=== PATIENT | male | born 1960 | race Caucasian/White ===

== ENCOUNTER 2016-09-30 12:42 | Day surgery (SDC) | payer BC ==
[~2016-09-30 12:42] MED LIST: ACETAMINOPHEN 1000MG/100 ML PREMIX IV ONE
[2016-09-30] MEDS ORDERED: LIDOCAINE 2% MDV (20MG/ML) 20ML VIAL IV ONE (14:00)
[2016-09-30] MEDS ORDERED: SEVOFLURANE 250 ML INH ONE (14:00)
[2016-09-30] MEDS ORDERED: HYDROCODONE/APAP 7.5/325MG TABLET PO ONE (14:00)
[2016-09-30] MEDS ORDERED: BUPIVACAINE 0.25% W/EPI MPF 30ML VIAL IVP ONE (14:00)
[2016-09-30] MEDS ORDERED: FENTANYL PF 100MCG/2ML VIAL IV ONE (14:00)
[2016-09-30] MEDS ORDERED: PROPOFOL 10 MG/ML VIAL IV ONE (14:00)
[2016-09-30] MEDS ORDERED: KETOROLAC 30 MG/ML VIAL IVP ONE (14:00)
--- NOTE | 2016-10-07 11:11 | Operative Note ---
DATE OF SURGERY: 09/30/2016 Surgeon: Rodrick Carlson DO PREOPERATIVE DIAGNOSES: 1. Torn medial meniscus of the left knee. 2. Synovitis of the left knee. 3. Chondromalacia of left knee. POSTOPERATIVE DIAGNOSES: 1. Torn medial meniscus of the left knee. 2. Synovitis of the left knee (2 compartments). 3. 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 OPERATION: 1. Arthroscopic partial medial meniscectomy left knee. 2. Arthroscopic partial synovectomy left knee (2 compartments). 3. Arthroscopic chondroplasty of medial femoral condyle and trochlea left knee. DESCRIPTION OF PROCEDURE: This 56-year-old male was taken to the operating room, placed in the supine position on the operating room table. A general anesthetic was administered and the left lower extremity was elevated. It was exsanguinated and the tourniquet inflated to 300 mmHg. Arthroscopic knee burgess applied. Left knee prepped with Hibiclens and draped in the usual sterile fashion. An inferolateral portal was established for the 4 mm arthroscope. Initial evaluation of the joint demonstrated normal appearance of the suprapatellar pouch. The articular cartilage of the patella appeared normal. An inferomedial portal was established, and probing did not reveal any gross pathology there. However, the trochlea demonstrated grade 2 change in the center of the trochlea. A linear area in the deepest part of the trochlea which was approximately 1.5 cm in length demonstrated gross instability of the articular cartilage with flaps of articular cartilage being loose. Utilizing the rotating shaver, we trimmed this articular cartilage to a stable rim, re-probing confirmed that. The medial compartment was entered and the loose flaps of articular cartilage were present at the lateral edge of the medial femoral condyle. Utilizing the rotating shaver, chondroplasty was performed to remove the loose flaps of articular cartilage present there. The remainder demonstrated mild grade 2 changes. The medial meniscus demonstrated a normal appearance from about the 9 to 9:30 position around anteriorly to the anterior attachment. However, there was a re-tear of the posterior horn of the medial meniscus. A horizontal cleavage type tear was present posteriorly. This was approximately 4 mm deep and we resected the unstable superior and inferior flaps of the medial meniscus back to very near the meniscosynovial junction. Utilizing the rotating shaver, we further smoothed, trimmed, and balanced the meniscus and re-probing demonstrated restored stability to the meniscus. The intracondylar notch was examined and found to be normal. The lateral compartment was entered, and the articular cartilage of the lateral compartment appeared relatively normal. A sort of an oblique crack across the articular cartilage of the lateral femoral condyle was present, but this was shallow and it was not unstable and it was not further disturbed. The meniscus, however, did not demonstrate any evidence of pathology whatsoever. There was synovitis present in both the medial and lateral compartments, and a partial synovectomy was performed in each. The joint was then copiously irrigated and suctioned. The instruments were removed. The portals were infiltrated with 0.25% Marcaine with epinephrine. Sterile dressings applied. Tourniquet and knee burgess released and the patient taken to the recovery room in satisfactory condition. GROSS PATHOLOGY: This patient demonstrated grade 2 chondromalacia of the center of the trochlea in an area of about 1.5 cm in length. Additionally, there was grade 2 chondromalacia of the medial femoral condyle with some loose flaps being present as described above, and chondroplasty was performed there. The patient had a recurrent tear of the medial meniscus with a horizontal cleavage tear as described. The horizontal cleavage tear extended from approximately the 11 o'clock to the 1 o'clock position with the apex being at the 12 o'clock position. Once the superior and inferior unstable flaps were resected, there was about a millimeter or two of meniscal rim remaining. CC: MD JUNI Cortez
== END 2016-09-30 15:50 | disposition home or self-care (01) ==
LOC: SUR 12:42
PROVIDERS: ATTEND Orthopaedic Surgery
DX: S83.242A Other tear of medial meniscus, current injury, left knee, initial encounter (principal); M94.262 Chondromalacia, left knee; M65.9 Synovitis and tenosynovitis, unspecified
CPT/HCPCS: 93005; 93010; J1885